=== PATIENT | male | born 1945 | race Hispanic/Latino ===

== ENCOUNTER → 2025-03-15 | Outpatient (CLI) | payer MEDICARE ==
[~2025-03-15] MED LIST: AMOX1TAB16 PO; ASPI-1197 PO; ATOR20TA65 PO; CARV3.1262 PO; DOXY-252 PO; EMPA10TA PO; FAMO20TA8 PO; FERR15DR24 PO; GABA300C PO; LISI10TA24 PO; LORA-192 PO; PANT40TA54 PO; SERT-439 PO; SOLI10TA PO; TAMS-55 PO
--- NOTE | 2025-03-24 12:22 | HMCIMG ---
EXAM: CR Pelvis and bilateral Hip, right, 6 View. CLINICAL HISTORY: PAIN IN RIGHT HIP COMPARISON: None provided. FINDINGS: BONES: No acute fracture or aggressive appearing osseous lesion. Post lumbar fusion, incompletely visualized. JOINTS: No dislocation. Medial hip joint space narrowing bilaterally. Mild medial marginal femoral head osteophyte formation bilaterally. The pubic symphysis is intact. The sacroiliac joints are intact. SOFT TISSUES: The soft tissues are unremarkable. Left pelvic surgical clip. IMPRESSION: 1. No acute fracture or dislocation. 2. 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 /[place]
== END | disposition home or self-care (01) ==
LOC: RAH 15:21
PROVIDERS: ATTEND Family Medicine
DX: M16.0 Bilateral primary osteoarthritis of hip (principal); M25.752 Osteophyte, left hip; M25.751 Osteophyte, right hip; M25.551 Pain in right hip
CPT/HCPCS: 73521